=== PATIENT | male | born 1995 | race Caucasian/White ===

== ENCOUNTER 2018-03-04 20:29 | Emergency (ER) | payer BC ==
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
[2018-03-04] MEDS ORDERED: TETANUS & DIPHTHERIA TOX,ADULT 0.5 ML VIAL ONE (21:02)
[2018-03-04] MEDS ORDERED: FENTANYL CITR 100 MCG/2 ML ONE (21:02)
[2018-03-04] MEDS ORDERED: SILVER SULFADIAZINE 1% 25 GM TOP ONE (21:03)
== END 2018-03-04 21:20 | disposition home or self-care (01) ==
LOC: ER 20:29
DX: T21.12XA Burn of first degree of abdominal wall, initial encounter (principal); T23.172A Burn of first degree of left wrist, initial encounter; T23.171A Burn of first degree of right wrist, initial encounter; F17.210 Nicotine dependence, cigarettes, uncomplicated; X08.8XXA Exposure to other specified smoke, fire and flames, initial encounter; Y93.9 Activity, unspecified; Y92.9 Unspecified place or not applicable; Y99.9 Unspecified external cause status; Z23 Encounter for immunization
CPT/HCPCS: 90714; 96372; 99283; J3010

== ENCOUNTER 2018-05-16 00:51 | Emergency (ER) | payer BC ==
[2018-05-16] MEDS ORDERED: MAGNE/ALUM HYDROXD 30 ML UCUP ONE (01:23)
[2018-05-16] MEDS ORDERED: LIDOCAINE VISCOUS 2% SOLN 15 ML UDC ONE (01:23)
[2018-05-16 01:43] LABS: Absolute Lymphocytes (CBC) 3.7 K/uL (0.7-4.9); Absolute Monocytes 0.9 K/uL (0.1-1.3); Absolute Neutrophil 4.6 K/uL (1.8-8.0); Basophils % 0.5 % (0-1.3); Lymphocytes % 39.9 % (15.3-44.8); MCH 30.9 pg (27.0-35.0); MCV 87.9 fL (80-100); MPV 9.1 fL (7.6-11.3); Monocytes % 9.5 % (3.3-12.3); RBC Red Blood Cell Count 5.23 M/uL (4.33-5.43)
[2018-05-16 01:52] LABS: ALT/SGPT 28 U/L (12-78); AST/SGOT 21 U/L (15-37); Albumin 3.8 g/dL (3.4-5.0); Alkaline Phosphatase 49 U/L (45-117); BUN Blood Urea Nitrogen 16 mg/dL (7-18); Bicarbonate 27 mmol/L (21-32); Bilirubin Total 0.4 mg/dL (0.2-1.0); Glucose Level 112 mg/dL (74-106); Lipase 172 U/L (73-393); Potassium 4.5 mmol/L (3.5-5.1); Protein, Total 6.8 g/dL (6.4-8.2); Sodium Level 141 mmol/L (136-145)
[2018-05-16] MEDS ORDERED: DIPHENHYDRAMINE 25 MG TAB/CAP ONE (01:56)
--- NOTE | 2018-05-16 02:41 | EDPHYS ---
Physician Documentation [facility] Name: Antony Brown Age: 23 yrs Sex: Male : 1995 Arrival Date: 05/16/2018 Time: 00:54 Bed 15 Private MD: Kwesi Messer V ED Physician Raudel Christensen HPI: 05/16 02:41 This 23 yrs old Male presents to ER via Ambulatory with complaints of ps1 Abdominal Pain. 02:41 The patient presents with abdominal pain in the epigastric area, in the right upper ps1 quadrant. Onset: The symptoms/episode began/occurred months ago and related to food. Patient had a worse episode tonight. Patient does drink alcohol intermittently. Pain localized epigastric and RUQ. Pain rated as mild to moderate. No remitting, worse with food. . Historical: - Allergies: 01:08 No Known Allergies; lp1 - Home Meds: 01:08 None [Active]; lp1 - PMHx: 01:08 None; lp1 - PSHx: 01:08 wrist surgery; lp1 - Immunization history:: Adult Immunizations up to date. - Social history:: Smoking status: Patient uses tobacco products, smokes one-half pack cigarettes per day. - Ebola Screening: : No symptoms or risks identified at this time. ROS: 02:41 Constitutional: Negative for fever, chills, and weight loss, Eyes: Negative for injury, ps1 pain, redness, and discharge, Cardiovascular: Negative for chest pain, palpitations, and edema, Respiratory: Negative for shortness of breath, cough, wheezing, and pleuritic chest pain, Back: Negative for injury and pain, MS/Extremity: Negative for injury and deformity, Skin: Negative for injury, rash, and discoloration, Neuro: Negative for headache, weakness, numbness, tingling, and seizure. 02:41 Abdomen/GI: Positive for abdominal pain. Exam: 02:41 Constitutional: This is a well developed, well nourished patient who is awake, alert, ps1 and in no acute distress. Head/Face: Normocephalic, atraumatic. Eyes: Pupils equal round and reactive to light, extra-ocular motions intact. Lids and lashes normal. Conjunctiva and sclera are non-icteric and not injected. ENT: Nares patent. No nasal discharge, no septal abnormalities noted. Tympanic membranes are normal and external auditory canals are clear. Oropharynx with no redness, swelling, or masses, exudates, or evidence of obstruction, uvula midline. Mucous membranes moist. Chest/axilla: Normal chest wall appearance and motion. Nontender with no deformity. No lesions are appreciated. Cardiovascular: Regular rate and rhythm. No gallops, murmurs, or rubs. Normal PMI, no JVD. No pulse deficits. Respiratory: Lungs have equal breath sounds bilaterally, clear to auscultation and percussion. No rales, rhonchi or wheezes noted. No increased work of breathing, no retractions or nasal flaring. Skin: Warm, dry with normal turgor. Normal color with no rashes, no lesions, and no evidence of cellulitis. MS/ Extremity: Pulses equal, no cyanosis. Neurovascular intact. Full, normal range of motion. Neuro: Awake and alert, GCS 15, oriented to person, place, time, and situation. Cranial nerves II-XII grossly intact. Sensory grossly intact. Psych: Awake, alert, with orientation to person, place and time. Behavior, mood, and affect are within normal limits. 02:41 Abdomen/GI: Inspection: abdomen appears normal, Bowel sounds: normal, Palpation: mild abdominal tenderness, in the right upper quadrant and epigastric area. Vital Signs: 01:08 BP 117 / 90; Pulse 76; Resp 18; Temp 98.1(O); Pulse Ox 99% on R/A; Weight 95.25 kg; lp1 Height 6 ft. 2 in. (187.96 cm); Pain 9/10; 02:15 BP 104 / 70; Pulse 75; Resp 18; Pulse Ox 97% on R/A; aa1 01:08 Body Mass Index 26.96 (95.25 kg, 187.96 cm) lp1 MDM: 00:57 Patient medically screened. jr8 02:41 Data reviewed: vital signs, nurses notes, lab test result(s), radiologic studies, CT ps1 scan, and as a result, I will discharge patient. Counseling: I had a detailed discussion with the patient and/or guardian regarding: the historical points, exam findings, and any diagnostic results supporting the discharge/admit diagnosis, the need for outpatient follow up, a general surgeon. 05/16 01:13 Order name: CBC with Diff; Complete Time: 01:45 ps1 05/16 01:13 Order name: Lipase; Complete Time: 01:56 ps1 05/16 01:13 Order name: CMP; Complete Time: 01:56 ps1 05/16 01:13 Order name: CT Abd/Pelvis - W/Contrast ps1 05/16 01:13 Order name: IV Saline Lock; Complete Time: 01:41 ps1 05/16 01:13 Order name: Labs collected and sent; Complete Time: 01:41 ps1 Administered Medications: 01:20 Drug: GI Cocktail without - (Maalox Suspension 30 ml, Lidocaine Liquid 2 % 15 aa1 ml) Route: PO; 02:03 Follow up: Response: No adverse reaction; Pain is decreased aa1 02:08 Drug: Benadryl 25 mg Route: PO; aa1 02:51 Follow up: Response: No adverse reaction; Marked relief of symptoms aa1 Disposition: 05/16/18 02:40 Discharged to Home. Impression: Cholelithiasis. - Condition is Stable. - Discharge Instructions: Biliary Colic, Adult. - Medication Reconciliation Form, Thank You Letter, Antibiotic Education, Prescription Opioid Use form. - Follow up: Ruben Anna MD; When: Tomorrow; Reason: Further diagnostic work-up, Recheck today's complaints, Continuance of care. - Problem is new. - Symptoms have improved. Signatures: Dispatcher [employer] [facility] Grace Patrick RN RN aa1 Abigail Gaming RN RN lp1 Dalton Cardenas PA PA jr8 Raudel Christensen MD MD ps1 Corrections: (The following items were deleted from the chart) 01:42 01:13 Creatinine for Radiology+C.LAB.BRZ ordered. [facility] EDMS 02:54 02:40 05/16/2018 02:40 Discharged to Home. Impression: Cholelithiasis. Condition is aa1 Stable. Forms are Medication Reconciliation Form, Thank You Letter, Antibiotic Education, Prescription Opioid Use. Follow up: Ruben Anna; When: Tomorrow; Reason: Further diagnostic work-up, Recheck today's complaints, Continuance of care. Problem is new. Symptoms have improved. ps1
--- NOTE | 2018-05-16 02:41 | ER ---
Nurse's Notes [facility] Name: Antony Brown Age: 23 yrs Sex: Male : 1995 Arrival Date: 05/16/2018 Time: 00:54 Bed 15 Private MD: Kwesi Messer V Diagnosis: Cholelithiasis Presentation: 05/16 01:06 Presenting complaint: Patient states: Epigastric pain that began after dinner tonight; lp1 Patient states pain happens often, worse tonight; Vomited x1;. Transition of care: patient was not received from another setting of care. Onset of symptoms was May 15, 2018 at 17:30. Risk Assessment: Do you want to hurt yourself or someone else? Patient reports no desire to harm self or others. Initial Sepsis Screen: Does the patient meet any 2 criteria? No. Patient's initial sepsis screen is negative. Does the patient have a suspected source of infection? No. Patient's initial sepsis screen is negative. Care prior to arrival: None. 01:06 Method Of Arrival: Ambulatory lp1 01:06 Acuity: NIGHAT 3 lp1 Historical: - Allergies: 01:08 No Known Allergies; lp1 - Home Meds: 01:08 None [Active]; lp1 - PMHx: 01:08 None; lp1 - PSHx: 01:08 wrist surgery; lp1 - Immunization history:: Adult Immunizations up to date. - Social history:: Smoking status: Patient uses tobacco products, smokes one-half pack cigarettes per day. - Ebola Screening: : No symptoms or risks identified at this time. Screenin:10 Abuse screen: Denies threats or abuse. Denies injuries from another. Nutritional aa1 screening: No deficits noted. Tuberculosis screening: No symptoms or risk factors identified. Fall Risk None identified. Assessment: 01:10 General: Appears in no apparent distress. comfortable, Behavior is calm, cooperative, aa1 appropriate for age. Pain: Complains of pain in epigastric area and right upper quadrant. Neuro: Level of Consciousness is awake, alert, obeys commands, Oriented to person, place, time, situation, Moves all extremities. Full function Gait is steady. Respiratory: Airway is patent Respiratory effort is even, unlabored, Respiratory pattern is regular, symmetrical. GI: Abdomen is non-distended, Bowel sounds present X 4 quads. Abd is soft X 4 quads Abdomen is tender to palpation in right upper quadrant Reports upper abdominal pain, epigastric pain, Patient currently denies diarrhea, vomiting. : No signs and/or symptoms were reported regarding the genitourinary system. EENT: No signs and/or symptoms were reported regarding the EENT system. Derm: Skin is intact, is healthy with good turgor, Skin is pink, warm \T\ dry. Musculoskeletal: Circulation, motion, and sensation intact. Capillary refill < 3 seconds. 02:00 Reassessment: Patient appears in no apparent distress at this time. Patient and/or aa1 family updated on plan of care and expected duration. Pain level reassessed. Patient is alert, oriented x 3, equal unlabored respirations, skin warm/dry/pink. Pt back from CT. C/O itching; MD notified. 02:53 Reassessment: Patient appears in no apparent distress at this time. Patient is alert, aa1 oriented x 3, equal unlabored respirations, skin warm/dry/pink. Discussed d/c \T\ f/u instructions with pt \T\ significant other; denies questions or concerns at this time Patient states feeling better. Vital Signs: 01:08 BP 117 / 90; Pulse 76; Resp 18; Temp 98.1(O); Pulse Ox 99% on R/A; Weight 95.25 kg; lp1 Height 6 ft. 2 in. (187.96 cm); Pain 9/10; 02:15 BP 104 / 70; Pulse 75; Resp 18; Pulse Ox 97% on R/A; aa1 01:08 Body Mass Index 26.96 (95.25 kg, 187.96 cm) lp1 ED Course: 00:54 Patient arrived in ED. es 00:55 Kwesi Messer MD is Private Physician. es 00:57 [facility] jr8 00:57 Raudel Christensen MD is Attending Physician. jr8 01:07 Triage completed. lp1 01:08 Arm band placed on. lp1 01:09 Grace Patrick, JULIAN is Primary Nurse. aa1 01:10 Patient has correct armband on for positive identification. Bed in low position. Call aa1 light in reach. Pulse ox on. NIBP on. 01:25 Inserted saline lock: 20 gauge in right antecubital area, using aseptic technique. aa1 Blood collected. 01:44 CT Abd/Pelvis - W/Contrast In Process Unspecified. EDMS 02:40 Ruben Anna MD is Referral Physician. ps1 02:53 No provider procedures requiring assistance completed. IV discontinued, intact, aa1 bleeding controlled, No redness/swelling at site. Pressure dressing applied. Administered Medications: 01:20 Drug: GI Cocktail without - (Maalox Suspension 30 ml, Lidocaine Liquid 2 % 15 aa1 ml) Route: PO; 02:03 Follow up: Response: No adverse reaction; Pain is decreased aa1 02:08 Drug: Benadryl 25 mg Route: PO; aa1 02:51 Follow up: Response: No adverse reaction; Marked relief of symptoms aa1 Outcome: 02:40 Discharge ordered by . ps1 02:54 Discharged to home ambulatory, with significant other. aa1 02:54 Condition: good 02:54 Discharge instructions given to patient, significant other, Instructed on discharge instructions, follow up and referral plans. Demonstrated understanding of instructions, follow-up care. 02:54 Patient left the ED. aa1 Signatures: Dispatcher [employer] EDMS Grace Patrick RN RN aa1 Linda Bailey Laura, RN RN lp1 Dalton Cardenas PA PA jr8 Raudel Christensen MD MD ps1
--- NOTE | 2018-05-16 08:40 | RAD REPORT ---
EXAM DESCRIPTION: CTAbdomen Pelvis W Contrast - 05/16/2018 3:51 am CLINICAL HISTORY: Abdominal pain. epigastric/ RUQ pain COMPARISON: CT ABD PELVIS W CONTRAST dated 08/06/2015 TECHNIQUE: Biphasic CT imaging of the abdomen and pelvis was performed with 100 ml non-ionic IV cont rast. All CT scans are performed using dose optimization technique as appropriate and may include automated exposure control or mA/KV adjustment according to patient size. FINDINGS: The lung bases are clear. The liver, spleen, pancreas, adrenal glands and kidneys are within normal limits. Cholelithiasis. No bowel obstruction, free air, free fluid or abscess. Small fat containing umbilical hernia. The tawana endix is normal. No evidence of significant lymphadenopathy. No suspicious bony findings. Small fat containing right inguinal hernia. IMPRESSION: Prominent cholelithiasis.
== END 2018-05-16 02:54 | disposition home or self-care (01) ==
LOC: ER 00:51
DX: K80.20 Calculus of gallbladder without cholecystitis without obstruction (principal); F17.210 Nicotine dependence, cigarettes, uncomplicated
CPT/HCPCS: 36415; 74177; 80053; 83690; 85025; 99284; Q9967

== ENCOUNTER 2018-05-25 12:30 | Day surgery (SDC) | payer BC ==
[2018-05-25] MEDS ORDERED: CEFOXITIN/SWI 1gm 1 GM/10 ML SYR ONE (13:06)
[2018-05-25] MEDS ORDERED: Ringers Lactate 1,000 ML IV ONE ×2 (13:25→14:41)
[2018-05-25] MEDS ORDERED: FENTANYL CITR 100 MCG/2 ML ONE ×4 (13:40→14:47)
[2018-05-25] MEDS ORDERED: ROCURONIUM 50 MG/5 ML VIAL IV ONE (13:40)
[2018-05-25] MEDS ORDERED: LIDOCAINE 1% MPF 5 ML VIAL ONE (13:40)
[2018-05-25] MEDS ORDERED: PROPOFOL 200 MG/20 ML VIAL IV ONE (13:40)
[2018-05-25] MEDS ORDERED: MIDAZOLAM HCL 2 MG/2 ML INJ ONE (13:40)
--- NOTE | 2018-05-25 13:57 | P.HP ---
Date of Service: 05/25/18 PC: This 23-year-old male presents for elective laparoscopic cholecystectomy with cholangiogram. HPC: Patient has been experiencing right upper quadrant abdominal pain, for off and on for the last few months. Has documented gallstones. PMH: Negative PSHx: Negative SOC: No known allergies SYS REVIEW: No cough, wheeze, shortness of breath. No chest pain or palpitations. Denies any urinary complaints. Has a strong family history of gallstones. O/E awake alert vital signs are stable HEENT: Not jaundiced Chest: Chest movement equal bilaterally ABD: Mild right upper quadrant tenderness LOCO: Intact DATA: Within normal limits, has documented gallstones IMPRESSION: Cholecystitis with biliary colic PLAN: I will take him to the operating room for laparoscopic possible open cholecystectomy with cholangiogram. The risks of this procedure have been discussed. The possibility of bleeding, infection, injury to bile ducts blood vessels and intestines has been described. The possible need for an open and/ or further surgeries and procedures has been discussed. He understands and wants us to proceed.
[2018-05-25] MEDS ORDERED: GLYCOPYRROLATE 0.2 MG/ML SYR ONE (14:23)
[2018-05-25] MEDS ORDERED: NEOSTIGMINE 1 MG/ML -5 ML SYRINGE ONE ×2 (14:25→14:52)
--- NOTE | 2018-05-25 15:03 | P.OP ---
Preoperative diagnosis: Cholelithiasis, biliary colic Postoperative diagnosis: The same Primary procedure: Laparoscopic cholecystectomy Secondary procedure: Cholangiogram Anesthesia: General Estimated blood loss: Less than 10 cc Specimen: 1 gallbladder and contents Operative Technique: The patient was brought to the operating room placed supine on the table. After the induction of adequate general endotracheal anesthesia, the area of the abdomen is prepped with a DuraPrep solution, and draped in the usual aseptic manner. A subumbilical incision was made. This brought down through the skin and subcutaneous tissue. The Visiport was used to enter the peritoneal cavity and created pneumoperitoneum to approximately 12 mm of mercury. Under direct vision a 5 mm trocar was placed in the upper midline, and 2 other 5 mm trocars on the right lateral side. The patient's head was then elevated and rolled towards the coating operator's side. We could see a distended and chronically inflamed gallbladder. A grasper was placed on the fundus of the gallbladder. Another 1 was placed down by Magali's pouch. Applying lateral traction we were able to dissect and expose the cystic duct and artery. The artery was dealt with 1st. It was clipped and divided in the usual manner. A clip was then placed between the gallbladder and the cystic duct. An opening was made into the cystic duct. We attempted then to pass the cholangiocath into the cystic duct. We could see the duct was then, and there were bowels in the cystic duct itself. Holding the catheter in place, we were able to obtained a normal intraoperative cholangiogram. We could see there was good flow contrast into the duodenum with no filling defects. We also demonstrated the left and right hepatic duct as well as the cystic duct itself. Clips were now placed on the distal portion of the cystic duct. The cystic duct was then divided. The gallbladder was now dissected free from the liver bed, placed into an Endo-Catch, and brought out through the umbilical trocar site. The gallbladder fossa was inspected to ensure adequate hemostasis. It was irrigated with a saline solution and the irrigant aspirated from the peritoneal cavity. 0.25% Marcaine was aerosolized into the right upper quadrant and the gallbladder fossa. The umbilical trocar site was now approximated with an Endo Close and an absorbable sutures. The pneumoperitoneum was then collapsed, the suture tied, and burak applied to the skin. A further 0.25% Marcaine was injected around are incision sites. At the end of the procedure the patient was in a stable condition when sent to the recovery room. Needle sponge instrument count were correct. 1 specimen was sent for histopathology. Complications: None Transferred to: Recovery Room Condition: Good
[2018-05-25] MEDS: MEPERIDINE HCL 50 MG/ML AMP ONE ×2 (15:11→15:17)
[2018-05-25] MEDS: HYDROMORPHONE HCL 1 MG/ML INJ ONE ×5 (15:25→15:45)
[2018-05-25] MEDS ORDERED: HYDROCODONE/APAP 7.5/325 MG TAB PO PRN ×2 (15:30→16:49)
[2018-05-25] MEDS ORDERED: MORPHINE 4 MG/ML SYR IV PRN (15:30)
[2018-05-25] MEDS ORDERED: ONDANSETRON 4 MG/2 ML VIAL IV PRN ×2 (15:30→16:50)
[2018-05-25] MEDS ORDERED: Ringers Lactate 1,000 ML IV SCH ×2 (16:00→17:00)
--- NOTE | 2018-05-25 16:05 | RAD REPORT ---
EXAM DESCRIPTION: RADCholangiogram Oper-Xray Or05/25/2018 3:46 pm CLINICAL HISTORY: Abdominal pain FINDINGS: The examination was performed by Dr. Anna. The cystic duct was cannulated and contrast administered. Contrast flowed into the duodenum. The biliary tree is normal caliber without a filling defect seen. Fluoroscopy time 2 seconds. Two fluoroscopic spot images obtained
[2018-05-25] MEDS: MORPHINE 4 MG/ML SYR IV PRN ×2 (16:57→19:32)
[2018-05-25] MEDS ORDERED: INFLUENZA VACCINE (for 3y+) 0.5 ML DOSE IMVAC ONE (19:00)
== END 2018-05-26 | disposition left against medical advice (07) ==
LOC: OR 12:30 → UNDOADMIN 15:32 → 2ND 15:32 → OR 05-26
PROVIDERS: ATTEND Surgery
PROC: BF00YZZ Plain Radiography of Bile Ducts using Other Contrast (ICD-10-PCS; 2018-05-25)
PROC: 0FT44ZZ Resection of Gallbladder, Percutaneous Endoscopic Approach (ICD-10-PCS; principal; 2018-05-25 13:45)
DX: K80.64 Calculus of gallbladder and bile duct with chronic cholecystitis without obstruction (principal)
CPT/HCPCS: 74300; 88304; G0008; J1170; J2175; J2250; J2405; J2704; J2710; J3010; Q2035; Q9967

== ENCOUNTER 2018-07-10 13:09 | Emergency (ER) | payer BC ==
[2018-07-10] MEDS ORDERED: KETOROLAC 30 MG/ML INJ ONE (14:26)
[2018-07-10] MEDS ORDERED: DIPHENHYDRAMINE 50 MG/ML VIAL ONE (14:26)
[2018-07-10] MEDS ORDERED: DEXAMETHASONE 10 MG/ML VIAL ONE (14:26)
--- NOTE | 2018-07-10 14:51 | ER ---
Nurse's Notes [facility] Name: Butch Brown Age: 23 yrs Sex: Male : 1995 Arrival Date: 07/10/2018 Time: 13:14 Bed 8 Private MD: Diagnosis: Torticollis;Muscle spasm Presentation: 07/10 13:24 Presenting complaint: Patient states: "I woke up with a crick in my neck this morning, ss but about an hour ago it turned into an agonizing pain.". Transition of care: patient was not received from another setting of care. Onset of symptoms was July 10, 2018. Risk Assessment: Do you want to hurt yourself or someone else? Patient reports no desire to harm self or others. Initial Sepsis Screen: Does the patient meet any 2 criteria? No. Patient's initial sepsis screen is negative. Does the patient have a suspected source of infection? No. Patient's initial sepsis screen is negative. Care prior to arrival: None. 13:24 Method Of Arrival: Ambulatory ss 13:24 Acuity: NIGHAT 3 ss Historical: - Allergies: 13:26 No Known Allergies; ss - Home Meds: 13:26 None [Active]; ss - PMHx: 13:26 None; ss - PSHx: 13:26 R arm; Cholecystectomy; ss - Immunization history:: Adult Immunizations up to date. - Social history:: Smoking status: Patient uses tobacco products, smokes one-half pack cigarettes per day. - Ebola Screening: : Patient denies exposure to infectious person Patient denies travel to an Ebola-affected area in the 21 days before illness onset. - Family history:: not pertinent. - Hospitalizations: : No recent hospitalization is reported. Screenin:30 Abuse screen: Denies threats or abuse. Denies injuries from another. Nutritional sv screening: No deficits noted. Tuberculosis screening: No symptoms or risk factors identified. Fall Risk None identified. Assessment: 14:30 General: Appears in no apparent distress. uncomfortable, well developed, Behavior is sv calm, cooperative, appropriate for age. Pain: Complains of pain in right posterior aspect of neck, right lateral aspect of neck and right anterior aspect of neck Pain currently is 8 out of 10 on a pain scale. Pain began this morning Is continuous, Aggravated by increased activity, Noted to be grimacing, resistant to movement. Neuro: Level of Consciousness is awake, alert, obeys commands, Oriented to person, place, time, situation, Moves all extremities. Full function. Respiratory: Respiratory effort is even, unlabored, Respiratory pattern is regular, symmetrical. Derm: Skin is pink, warm \\T\\ dry. 14:58 Reassessment: Patient appears in no apparent distress at this time. Patient and/or sv family updated on plan of care and expected duration. Pain level reassessed. Patient is alert, oriented x 3, equal unlabored respirations, skin warm/dry/pink. Reports he feels more relaxed but stated "I didn't come here to get relaxed, I came here for pain.". Vital Signs: 13:26 BP 124 / 96; Pulse 73; Resp 16; Temp 98.5(O); Pulse Ox 98% on R/A; Weight 112.94 kg; ss Height 6 ft. 2 in. (187.96 cm); Pain 8/10; 13:26 Body Mass Index 31.97 (112.94 kg, 187.96 cm) ED Course: 13:14 Patient arrived in ED. dl4 13:25 Triage completed. ss 13:26 Arm band placed on left wrist. ss 13:42 Brittany Ray, RN is Primary Nurse. sv 13:51 Vincenzo Iyer MD is Attending Physician. rn 14:12 Inserted saline lock: 22 gauge in right antecubital area, using aseptic technique. jb1 14:30 Patient has correct armband on for positive identification. Bed in low position. Adult sv w/ patient. Door closed. Warm blanket given. Head of bed elevated. 15:12 No provider procedures requiring assistance completed. IV discontinued, intact, sv bleeding controlled, No redness/swelling at site. Pressure dressing applied. Administered Medications: 14:20 Drug: TORadol 30 mg Route: IVP; Site: right antecubital; sv 15:11 Follow up: Response: No adverse reaction sv 14:22 Drug: Benadryl 25 mg Route: IVP; Site: right antecubital; sv 15:11 Follow up: Response: No adverse reaction sv 14:26 Drug: Decadron - Dexamethasone 10 mg Route: IVP; Site: right antecubital; sv 15:11 Follow up: Response: No adverse reaction sv 15:00 Drug: Demerol 25 mg Route: IVP; Site: right antecubital; sv 15:11 Follow up: Response: No adverse reaction sv Outcome: 14:50 Discharge ordered by . rn 15:13 Discharged to home ambulatory, with family. sv 15:13 Condition: stable 15:13 Discharge instructions given to patient, family, Instructed on discharge instructions, follow up and referral plans. medication usage, neck ROM Demonstrated understanding of instructions, follow-up care, medications, Prescriptions given X 3. 15:13 Patient left the ED. sv Signatures: Charles Doan jb1 Brittany Ray, RN RN Vincenzo Bianchi MD MD rn Smirch, Shelby, RN RN ss Luna, David dl4
--- NOTE | 2018-07-10 14:51 | EDPHYS ---
Physician Documentation [facility] Name: Butch Brown Age: 23 yrs Sex: Male : 1995 Arrival Date: 07/10/2018 Time: 13:14 Bed 8 Private MD: ED Physician Vincenzo Iyer HPI: 07/10 14:14 This 23 yrs old Male presents to ER via Ambulatory with complaints of Stiff rn Neck. 14:14 The patient or guardian complains of pain. The symptoms are located on the right neck. rn Onset: The symptoms/episode began/occurred today. Associated signs and symptoms: Pertinent positives: This patient does not have any pertinent positive signs or symptoms associated with neck pain. Pertinent negatives: fever, bladder incontinence, bowel incontinence, numbness, tingling, vomiting, weakness. The pain does not radiate. Modifying factors: The symptoms are alleviated by nothing. the symptoms are aggravated by movement, pressure. Severity of symptoms: At their worst the symptoms were moderate, in the emergency department the symptoms are unchanged. The patient has not experienced similar symptoms in the past. Reports right side of neck hurts, was sleeping wrong, woke up with right sided neck pain, starts behind ear and hurts down to right shoulder, no fever, reports "crud in house", no trauma, felt like got over his illness yesterday or day before, worse with turning side to side, does not hurt moving up or down, no sore throat, no swelling.. Historical: - Allergies: 13:26 No Known Allergies; ss - Home Meds: 13:26 None [Active]; ss - PMHx: 13:26 None; ss - PSHx: 13:26 R arm; Cholecystectomy; ss - Immunization history:: Adult Immunizations up to date. - Social history:: Smoking status: Patient uses tobacco products, smokes one-half pack cigarettes per day. - Ebola Screening: : Patient denies exposure to infectious person Patient denies travel to an Ebola-affected area in the 21 days before illness onset. - Family history:: not pertinent. - Hospitalizations: : No recent hospitalization is reported. ROS: 14:14 Constitutional: Negative for fever, chills, and weight loss, Eyes: Negative for injury, rn pain, redness, and discharge, Neck: Negative for injury, and swelling, Cardiovascular: Negative for chest pain, palpitations, and edema, Respiratory: Negative for shortness of breath, cough, wheezing, and pleuritic chest pain, Abdomen/GI: Negative for abdominal pain, nausea, vomiting, diarrhea, and constipation, MS/Extremity: Negative for injury and deformity, Skin: Negative for injury, rash, and discoloration, Neuro: Negative for headache, weakness, numbness, tingling, and seizure. Exam: 14:14 Constitutional: This is a well developed, well nourished patient who is awake, alert, rn appears in pain, resting head on pink pillow to left Head/Face: Normocephalic, atraumatic. Eyes: Pupils equal round and reactive to light, extra-ocular motions intact. Lids and lashes normal. Conjunctiva and sclera are non-icteric and not injected. Cornea within normal limits. Periorbital areas with no swelling, redness, or edema. ENT: MMM, no swelling, no LAD, no crepitus Neck: Trachea midline, no thyromegaly or masses palpated, and no cervical lymphadenopathy. NO meningismus, no posterior pain or tenderness, + tenderness right SCM without fluctuance or mass Skin: Warm, dry with normal turgor. Normal color with no rashes, no lesions, and no evidence of cellulitis. MS/ Extremity: Pulses equal, no cyanosis. Neurovascular intact. Full, normal range of motion. Equal circumference. Neuro: Awake and alert, GCS 15, oriented to person, place, time, and situation. Cranial nerves II-XII grossly intact. Motor strength 5/5 in all extremities. Sensory grossly intact. Vital Signs: 13:26 BP 124 / 96; Pulse 73; Resp 16; Temp 98.5(O); Pulse Ox 98% on R/A; Weight 112.94 kg; ss Height 6 ft. 2 in. (187.96 cm); Pain 8/10; 13:26 Body Mass Index 31.97 (112.94 kg, 187.96 cm) ss MDM: 13:51 Patient medically screened. rn 14:50 Differential diagnosis: cervical strain, torticollis. Data reviewed: vital signs, rn nurses notes, and as a result, I will discharge patient. Counseling: I had a detailed discussion with the patient and/or guardian regarding: the historical points, exam findings, and any diagnostic results supporting the discharge/admit diagnosis, the need for outpatient follow up, to return to the emergency department if symptoms worsen or persist or if there are any questions or concerns that arise at home. Response to treatment: the patient's symptoms have mildly improved after treatment, and as a result, I will discharge patient. Special discussion: I discussed with the patient/guardian in detail that at this point there is no indication for admission to the hospital. It is understood, however, that if the symptoms persist or worsen the patient needs to return immediately for re-evaluation. 07/10 14:01 Order name: IV Start; Complete Time: 14:12 rn Administered Medications: 14:20 Drug: TORadol 30 mg Route: IVP; Site: right antecubital; sv 15:11 Follow up: Response: No adverse reaction sv 14:22 Drug: Benadryl 25 mg Route: IVP; Site: right antecubital; sv 15:11 Follow up: Response: No adverse reaction sv 14:26 Drug: Decadron - Dexamethasone 10 mg Route: IVP; Site: right antecubital; sv 15:11 Follow up: Response: No adverse reaction sv 15:00 Drug: Demerol 25 mg Route: IVP; Site: right antecubital; sv 15:11 Follow up: Response: No adverse reaction sv Disposition: 07/10/18 14:50 Discharged to Home. Impression: Torticollis, Muscle spasm. - Condition is Stable. - Discharge Instructions: Acute Torticollis, Adult, Neck Exercises. - Prescriptions for Ibuprofen 800 mg Oral Tablet - take 1 tablet by ORAL route every 12 hours As needed take with food; 20 tablet. Cyclobenzaprine 10 mg Oral Tablet - take 1 tablet by ORAL route every 8 hours As needed; 20 tablet. Medrol (Romulo) 4 mg Oral Tablets, Dose Pack - take 1 tablet by ORAL route as directed - follow package instructions; 1 packet. - Medication Reconciliation Form, Thank You Letter, Antibiotic Education, Prescription Opioid Use form. - Follow up: Private Physician; When: As needed; Reason: Recheck today's complaints, Re-evaluation by your physician. - Problem is new. - Symptoms have improved. Signatures: Brittany Ray RN RN Vincenzo Iyer MD MD rn Smirch, Shelby, RN RN Corrections: (The following items were deleted from the chart) 15:13 14:50 07/10/2018 14:50 Discharged to Home. Impression: Torticollis; Muscle spasm. sv Condition is Stable. Forms are Medication Reconciliation Form, Thank You Letter, Antibiotic Education, Prescription Opioid Use. Follow up: Private Physician; When: As needed; Reason: Recheck today's complaints, Re-evaluation by your physician. Problem is new. Symptoms have improved. rn
[2018-07-10] MEDS ORDERED: MEPERIDINE HCL 25 MG/0.5 ML ONE (15:12)
== END 2018-07-10 15:13 | disposition home or self-care (01) ==
LOC: ER 13:09
DX: M62.838 Other muscle spasm (principal); F17.210 Nicotine dependence, cigarettes, uncomplicated
CPT/HCPCS: 96374; 96375; 99283; J1100; J2175

== ENCOUNTER 2020-05-04 15:06 | Emergency (ER) | payer BC, SELFPAY ==
[2020-05-04 16:27] LABS: Absolute Lymphocytes (CBC) 2.5 K/uL (0.7-4.9); Basophils % 0.4 % (0-1.3); Hematocrit 49.5 % (39.6-49.0); MPV 9.3 fL (7.6-11.3); RBC Red Blood Cell Count 5.67 M/uL (4.33-5.43)
[2020-05-04 16:31] LABS: Protime INR 0.97
[2020-05-04] MEDS ORDERED: NA CHLORIDE 0.9% 1,000 ML ONE (16:35)
[2020-05-04 16:47] LABS: Albumin 4.4 g/dL (3.4-5.0); Bilirubin Direct 0.1 mg/dL (0-0.2); Bilirubin Total 0.6 mg/dL (0.2-1.0); Potassium 4.2 mmol/L (3.5-5.1); Protein, Total 7.9 g/dL (6.4-8.2)
--- NOTE | 2020-05-04 18:50 | RAD REPORT ---
EXAM DESCRIPTION: CTAbdomen Pelvis W Contrast - 05/04/2020 6:02 pm CLINICAL HISTORY: Abdominal pain. rectal bleeding COMPARISON: <Comparisons> TECHNIQUE: Biphasic CT imaging of the abdomen and pelvis was performed with 100 ml non-ionic IV cont rast. All CT scans are performed using dose optimization technique as appropriate and may include automated exposure control or mA/KV adjustment according to patient size. FINDINGS: The lung bases are clear.Cholecystectomy. The liver, spleen, pancreas, adrenal glands and kidneys are within normal limits. No bowel obstruction, free air, free fluid or abscess. The appendix is normal. No evidence of signi ficant lymphadenopathy. Small fat containing right inguinal hernia. Colon is incompletely assessed du e to being decompressed. No suspicious bony findings. IMPRESSION: No acute intra-abdominal or pelvic finding.
--- NOTE | 2020-05-04 19:19 | ER ---
Nurse's Notes [facility] Name: Butch Brown Age: 24 yrs Sex: Male : 1995 Arrival Date: 05/04/2020 Time: 15:08 Bed 7 Private MD: Diagnosis: Other fecal abnormalities-blood in stool Presentation: 05/04 15:21 Chief complaint: Patient states: Bright red rectal bleeding with BM's for 4 months, ll1 getting slowly worse. No fever. No N/V/D. Coronavirus screen: Client denies travel out of the [place] in the last 14 days. At this time, the client does not indicate any symptoms associated with coronavirus-19. Ebola Screen: Patient denies travel to an Ebola-affected area in the 21 days before illness onset. Initial Sepsis Screen: Does the patient meet any 2 criteria? HR > 90 bpm. Risk Assessment: Do you want to hurt yourself or someone else? Patient reports no desire to harm self or others. Onset of symptoms was December 30, 2019. 15:21 Method Of Arrival: Ambulatory [facility] 15:21 Acuity: NIGHAT 3 ll1 16:03 Initial Sepsis Screen: Does the patient have a suspected source of infection? No. ph Patient's initial sepsis screen is negative. Historical: - Allergies: 15:23 No Known Allergies; ll1 - PSHx: 15:23 Cholecystectomy; R arm; ll1 - Immunization history:: Flu vaccine is not up to date. - Social history:: Smoking status: Patient reports the use of cigarette tobacco products, smokes one pack cigarettes per day. Screenin:02 Abuse screen: Denies threats or abuse. Denies injuries from another. Nutritional ph screening: No deficits noted. Tuberculosis screening: No symptoms or risk factors identified. Fall Risk None identified. Assessment: 16:29 General: Appears in no apparent distress. comfortable, well groomed, Behavior is calm, ph cooperative, appropriate for age, Denies fever, feeling ill. Pain: Denies pain. Neuro: Level of Consciousness is awake, alert, obeys commands, Oriented to person, place, time, situation. Cardiovascular: Capillary refill < 3 seconds Patient's skin is warm and dry. Respiratory: Airway is patent Respiratory effort is even, unlabored, Respiratory pattern is regular, symmetrical. GI: Reports constipation, bloody stool, Patient currently denies diarrhea, nausea, vomiting. Derm: Skin is intact, is healthy with good turgor, Skin is pink, warm \T\ dry. 18:30 Reassessment: Patient appears in no apparent distress at this time. Patient and/or ph family updated on plan of care and expected duration. Pain level reassessed. Patient is alert, oriented x 3, equal unlabored respirations, skin warm/dry/pink. 19:10 Reassessment: Patient appears in no apparent distress at this time. Patient and/or wh family updated on plan of care and expected duration. Pain level reassessed. Patient is alert, oriented x 3, equal unlabored respirations, skin warm/dry/pink. Vital Signs: 15:21 BP 129 / 93; Pulse 100; Resp 18; Temp 98.7; Pulse Ox 95% ; Weight 99.79 kg; Height 6 ll1 ft. 2 in. (187.96 cm); Pain 0/10; 16:30 BP 112 / 82; Pulse 91; Resp 18; Pulse Ox 95% on R/A; ph 17:30 BP 118 / 78; Pulse 87; Resp 18; Pulse Ox 99% on R/A; ph 18:30 BP 116 / 80; Pulse 86; Resp 16; Pulse Ox 98% on R/A; ph 19:30 BP 121 / 76; Pulse 82; Resp 18; Pulse Ox 99% on R/A; wh 15:21 Body Mass Index 28.25 (99.79 kg, 187.96 cm) ll1 ED Course: 15:08 Patient arrived in ED. ds1 15:23 Triage completed. ll1 15:24 Arm band placed on. ll1 15:52 Jose Castellanos PA is PHCP. cp 15:52 Vincenzo Iyer MD is Attending Physician. cp 16:00 Melanie Humphries, JULIAN is Primary Nurse. ph 16:02 Patient has correct armband on for positive identification. Bed in low position. Call light in reach. Side rails up X 1. Pulse ox on. NIBP on. Door closed. Noise minimized. Warm blanket given. 16:29 Initial lab(s) drawn, by me, sent to lab. Inserted saline lock: 22 gauge in right ph antecubital area, using aseptic technique. Blood collected. 18:01 CT Abd/Pelvis - IV Contrast Only In Process Unspecified. EDMS 19:03 No provider procedures requiring assistance completed. ph 19:14 Beto Flores MD is Referral Physician. 19:30 IV discontinued, intact, bleeding controlled, No redness/swelling at site. Administered Medications: 16:28 Drug: NS 0.9% 1000 ml Route: IV; Rate: 1 bolus; Site: right antecubital; ph 19:30 Follow up: Response: No adverse reaction; IV Status: Completed infusion Outcome: 19:18 Discharge ordered by MD. cp 19:30 Discharged to home ambulatory. 19:30 Condition: stable 19:30 Discharge instructions given to patient, Instructed on discharge instructions, follow up and referral plans. POC Demonstrated understanding of instructions, follow-up care, POC 19:31 Patient left the ED. Signatures: Dispatcher [employer] [facility] Allie Patel ds1 Melanie Humphries, RN RN Jose Gimenez, SHADIA RENO Juan Pablo Toledo Janell Estrada RN RN ll1
--- NOTE | 2020-05-04 19:19 | EDPHYS ---
Physician Documentation [facility] Name: Butch Brown Age: 24 yrs Sex: Male : 1995 Arrival Date: 05/04/2020 Time: 15:08 Bed 7 Private MD: ED Physician Vincenzo Iyer HPI: 05/04 16:05 This 24 yrs old Male presents to ER via Ambulatory with complaints of Blood cp In Stool. 16:05 The patient presents to the emergency department with rectal bleeding, bright red blood cp with bowel movement, with multiple such episodes. 16:05 Onset: The symptoms/episode began/occurred 4 month(s) ago. cp 16:05 Abdominal pain: none is appreciated. Associated signs and symptoms: Pertinent cp positives: weight loss, Pertinent negatives: anorexia, constipation, diarrhea, fever. Severity of symptoms: in the emergency department the symptoms are unchanged despite home interventions. Historical: - Allergies: 15:23 No Known Allergies; ll1 - PSHx: 15:23 Cholecystectomy; R arm; ll1 - Immunization history:: Flu vaccine is not up to date. - Social history:: Smoking status: Patient reports the use of cigarette tobacco products, smokes one pack cigarettes per day. ROS: 16:05 Abdomen/GI: Positive for rectal bleeding, Negative for abdominal pain, vomiting, cp diarrhea, constipation, anorexia, black/tarry stool. 16:05 Eyes: Negative for injury, pain, redness, and discharge. cp 16:05 Constitutional: Positive for weight loss, Negative for body aches, chills, fever. 16:05 Cardiovascular: Negative for chest pain. 16:05 Respiratory: Negative for cough, shortness of breath, wheezing. 16:05 : Negative for urinary symptoms. 16:05 Neuro: Negative for altered mental status, headache, syncope, weakness. 16:05 All other systems are negative. Exam: 16:10 Constitutional: The patient appears in no acute distress, alert, awake, comfortable, cp non-toxic, well developed, well nourished. 16:10 Head/Face: Normocephalic, atraumatic. cp 16:10 Eyes: Periorbital structures: appear normal, Conjunctiva: normal, no exudate, no injection, Sclera: no appreciated abnormality, Lids and lashes: appear normal, bilaterally. 16:10 ENT: External ear(s): are unremarkable, Nose: is normal, Mouth: Lips: moist, Oral mucosa: moist, Posterior pharynx: Airway: no evidence of obstruction, patent. 16:10 Chest/axilla: Inspection: normal. 16:10 Cardiovascular: Rate: tachycardic, Rhythm: regular. 16:10 Respiratory: the patient does not display signs of respiratory distress, Respirations: normal, no use of accessory muscles, labored breathing, is not present, Breath sounds: are clear throughout, no decreased breath sounds. 16:10 Abdomen/GI: Inspection: abdomen appears normal, Bowel sounds: active, all quadrants, Palpation: abdomen is soft and non-tender, in all quadrants, rebound tenderness, is not appreciated, voluntary guarding, is not appreciated, involuntary guarding, is not appreciated. 16:10 : Rectal exam: Rectal tone: normal, Stool: brown, Guaiac testing: results were negative for occult blood. Vital Signs: 15:21 BP 129 / 93; Pulse 100; Resp 18; Temp 98.7; Pulse Ox 95% ; Weight 99.79 kg; Height 6 ll1 ft. 2 in. (187.96 cm); Pain 0/10; 16:30 BP 112 / 82; Pulse 91; Resp 18; Pulse Ox 95% on R/A; ph 17:30 BP 118 / 78; Pulse 87; Resp 18; Pulse Ox 99% on R/A; ph 18:30 BP 116 / 80; Pulse 86; Resp 16; Pulse Ox 98% on R/A; ph 19:30 BP 121 / 76; Pulse 82; Resp 18; Pulse Ox 99% on R/A; wh 15:21 Body Mass Index 28.25 (99.79 kg, 187.96 cm) ll1 MDM: 16:01 Patient medically screened. cp 16:35 Differential diagnosis: diverticulitis, hemorrhoids, colitis, colon carcinoma. cp 19:10 Data reviewed: vital signs, nurses notes, lab test result(s), radiologic studies, CT cp scan. 19:10 Counseling: I had a detailed discussion with the patient and/or guardian regarding: the cp historical points, exam findings, and any diagnostic results supporting the discharge/admit diagnosis, lab results, radiology results, the need for outpatient follow up, for definitive care, a ui software engineer. 05/04 16:01 Order name: Basic Metabolic Panel; Complete Time: 16:49 cp 05/04 16:49 Interpretation: Normal except: CL 110; GFR 75. cp 05/04 16:01 Order name: CBC with Diff; Complete Time: 16:49 cp 05/04 18:23 Interpretation: Normal except: WBC 12.3; RBC 5.67; HCT 49.5; NEUT A 9.1. cp 05/04 16:01 Order name: Hepatic Function; Complete Time: 16:49 cp 05/04 18:23 Interpretation: Reviewed. cp 05/04 16: Order name: Lipase; Complete Time: 16:49 cp 05/04 16: Order name: PT-INR; Complete Time: 16:49 cp 05/04 16: Order name: Ptt, Activated; Complete Time: 16:49 cp 05/04 16: Order name: IV Saline Lock; Complete Time: 16:28 cp 05/04 16: Order name: Labs collected and sent; Complete Time: 16:28 cp 05/04 16:33 Order name: CT Abd/Pelvis - IV Contrast Only; Complete Time: 19:07 cp 05/04 19:08 Interpretation: Report reviewed. cp Administered Medications: 16:28 Drug: NS 0.9% 1000 ml Route: IV; Rate: 1 bolus; Site: right antecubital; ph 19:30 Follow up: Response: No adverse reaction; IV Status: Completed infusion Disposition: 05/05 08:04 Co-signature as Attending Physician, Vincenzo Iyer MD. rn Disposition: 05/04/20 19:18 Discharged to Home. Impression: Other fecal abnormalities - blood in stool. - Condition is Stable. - Discharge Instructions: Gastrointestinal Bleeding. - Medication Reconciliation Form, Thank You Letter, Antibiotic Education, Prescription Opioid Use form. - Follow up: Beto Flores MD; When: 1 - 2 days; Reason: Recheck today's complaints. - Problem is new. - Symptoms have improved. Signatures: Dispatcher [employer] EDVincenzo Alexander MD MD rn Hall, Patricia, RN RN Jose Gimenez PA PA Juan Pablo Leggett Janell Estrada RN RN ll1 Corrections: (The following items were deleted from the chart) 05/04 19:31 19:18 05/04/2020 19:18 Discharged to Home. Impression: Other fecal abnormalities - wh blood in stool. Condition is Stable. Forms are Medication Reconciliation Form, Thank You Letter, Antibiotic Education, Prescription Opioid Use. Follow up: Beto Flores; When: 1 - 2 days; Reason: Recheck today's complaints. Problem is new. Symptoms have improved. cp
[2020-05-04 21:07] VITALS: TEMP 98.7
[2020-05-04 21:13] VITALS: BP 121/76; O2SAT 99
== END 2020-05-04 19:31 | disposition home or self-care (01) ==
LOC: ER 15:06
DX: K92.1 Melena (principal); F17.210 Nicotine dependence, cigarettes, uncomplicated
CPT/HCPCS: 36415; 74177; 80048; 80076; 83690; 85025; 85610; 85730; 96360; 96361; 99284; J7030; Q9967

== ENCOUNTER 2023-12-09 13:58 | Emergency (ER) | payer SELFPAY ==
--- NOTE | 2023-12-09 14:26 | EDPHYS ---
Physician Documentation [facility] Name: Butch Brown Age: 28 yrs Sex: Male : 1995 Arrival Date: 12/09/2023 Time: 13:58 Bed DX3 Private MD: ED Physician Basil Jordan HPI: 12/09 12:11 This 28 yrs old Male presents to ER via Ambulatory with complaints of ec2 Toothache. 12:11 Patient arrives today for evaluation of left upper dental pain. Patient reports no ec2 fevers or chills, denies trismus, no nausea or vomiting. Patient reports history of poor dentition, states he has not been able to follow-up with a dentist.. Historical: - Allergies: 12/08 14:17 No Known Allergies; ll1 - Home Meds: 14:17 None [Active]; ll1 - PMHx: 14:17 None; ll1 - PSHx: 14:17 Cholecystectomy; R arm SX; ll1 - Immunization history:: Adult Immunizations up to date. - Infectious Disease History:: Denies. - Social history:: Smoking status: Patient denies any tobacco usage or history of. ROS: 12/09 12:11 Constitutional: as per hpi ec2 Exam: 12:11 Constitutional: GEN: NAD Head: atraumatic Eyes: EOMI Ears: External ears are normal. ec2 Mouth: Left upper teeth with poor dentition, tooth #15 with injury CV: regular rate LUNGS: no respiratory distress ABD: non-distended SKIN: no evidence of rashes MSK: no evidence of trauma NEURO: moves all extremities equally Vital Signs: 12/08 14:17 BP 146 / 95; Pulse 77; Resp 16; Temp 97.2; Pulse Ox 100% ; Weight 104.33 kg; Height 6 ll1 ft. 2 in. ; Pain 6/10; 14:17 Body Mass Index 29.53 (104.33 kg, 187.96 cm) ll1 14:17 Pain Scale: Adult ll1 MDM: 14:25 Patient medically screened. ec2 12/09 12:11 Data reviewed: vital signs. ED course: Patient arrives today for left upper teeth pain. ec2 Examination remarkable for dental findings as above. Patient reports his broken tooth is chronic and not new for him. Will start the patient on Augmentin, discharged home on [id number] medications for pain as well. Started him he needs to follow up with his dentist.. Administered Medications: No medications were administered Disposition Summary: 12/09/23 14:25 Discharge Ordered Notes: Location: Home ec2 Condition: Stable ec2 Diagnosis - Dentalgia ec2 - Dental Infection ec2 Followup: ec2 - With: Private Physician - When: - Reason: Re-evaluation by your physician Discharge Instructions: - Discharge Summary Sheet ll1 - Dental Abscess, [id number] ec2 Forms: - Work release form ll1 - Medication Reconciliation Form ec2 - Antibiotic Education ec2 - Prescription Opioid Use ec2 - Patient Portal Instructions ec2 - Leadership Thank You Letter ec2 Prescriptions: - acetaminophen-codeine 300-15 mg Oral tablet - take 2 tablet ORAL route every 4 hours; 15 tablet; Refills: 0, Product ec2 Selection Permitted - Augmentin 875-125 mg Oral Tablet - take 1 tablet ORAL route every 12 hours for 10 days; 20 tablet; Refills: 0, ec2 Product Selection Permitted Signatures: Janell Estrada RN RN ll1 Basil Jordan MD MD ec2
--- NOTE | 2023-12-09 14:26 | ER ---
Nurse's Notes [facility] Name: Butch Brown Age: 28 yrs Sex: Male : 1995 Arrival Date: 12/09/2023 Time: 13:58 Bed DX3 Private MD: Diagnosis: Dentalgia;Dental Infection Presentation: 12/08 14:17 Chief complaint: Patient states: L upper jaw tooth pain for 1 month. Started to have ll1 nausea at work today, so he thought he should get checked. No fever. Coronavirus screen: Client denies travel out of the [place] in the last 14 days. At this time, the client does not indicate any symptoms associated with coronavirus-19. Ebola Screen: Patient denies travel to an Ebola-affected area in the 21 days before illness onset. Initial Sepsis Screen: Does the patient meet any 2 criteria? No. Patient's initial sepsis screen is negative. Does the patient have a suspected source of infection? No. Patient's initial sepsis screen is negative. Risk Assessment: Do you want to hurt yourself or someone else? Patient reports no desire to harm self or others. Onset of symptoms was November 09, 2023. 14:17 Method Of Arrival: Ambulatory ll1 14:17 Acuity: NIGHAT 4 ll1 Triage Assessment: 14:20 General: Appears uncomfortable, Behavior is calm, cooperative, appropriate for age. ll1 Pain: Complains of pain in L lower jaw. EENT: Reports pain in left zygomatic area. Historical: - Allergies: 14:17 No Known Allergies; ll1 - Home Meds: 14:17 None [Active]; ll1 - PMHx: 14:17 None; ll1 - PSHx: 14:17 Cholecystectomy; R arm SX; ll1 - Immunization history:: Adult Immunizations up to date. - Infectious Disease History:: Denies. - Social history:: Smoking status: Patient denies any tobacco usage or history of. Screenin:32 [facility] ED Fall Risk Assessment (Adult) History of falling in the last 3 months, hb including since admission No falls in past 3 months (0 pts) Confusion or Disorientation No (0 pts) Intoxicated or Sedated No (0 pts) Impaired Gait No (0 pts) Mobility Assist Device Used No (0 pt) Altered Elimination No (0 pt) Score/Fall Risk Level 0 - 2 = Low Risk Oriented to surroundings, Maintained a safe environment, Educated pt \T\ family on fall prevention, incl call for assistance when getting out of bed. Abuse screen: Denies threats or abuse. Nutritional screening: No deficits noted. Tuberculosis screening: No symptoms or risk factors identified. Assessment: 14:32 General: Appears in no apparent distress. Behavior is calm, cooperative. Pain: Pain hb currently is 6 out of 10 on a pain scale. Neuro: Level of Consciousness is awake, alert, obeys commands, Oriented to person, place, time, situation. Cardiovascular: Patient's skin is warm and dry. Respiratory: Respiratory effort is even, unlabored, Respiratory pattern is regular, symmetrical. EENT: Reports left upper tooth and jaw pain. Vital Signs: 14:17 BP 146 / 95; Pulse 77; Resp 16; Temp 97.2; Pulse Ox 100% ; Weight 104.33 kg; Height 6 ll1 ft. 2 in. ; Pain 6/10; 14:17 Body Mass Index 29.53 (104.33 kg, 187.96 cm) 1 14:17 Pain Scale: Adult ll1 ED Course: 14:00 Patient arrived in ED. mg5 14:02 Basil Jordan MD is Attending Physician. ec2 14:19 Triage completed. ll1 14:19 Arm band placed on. ll1 14:23 Janell Estrada RN is Primary Nurse. 1 14:32 Patient has correct armband on for positive identification. Provided Education on: hb medication, follow up. 14:32 No provider procedures requiring assistance completed. Patient did not have IV access hb during this emergency room visit. Administered Medications: No medications were administered Medication: 14:32 VIS not applicable for this client. hb Outcome: 14:25 Discharge ordered by . ec2 14:32 Discharged to home ambulatory, with significant other, hb 14:32 Condition: stable 14:32 Discharge instructions given to patient, Instructed on discharge instructions, follow up and referral plans. medication usage, Demonstrated understanding of instructions, follow-up care, medications, Prescriptions given X 2, 14:33 Patient left the ED. hb Signatures: Kym Flores RN RN Janell Estrada RN RN 1 Allison Ta mg5 Basil Jordan MD MD ec2 Corrections: (The following items were deleted from the chart) 14:21 14:17 Chief complaint: Patient states: L lower jaw tooth pain for 1 month. Started to ll1 have nausea at work today so he thought he should get checked. ll1
[2023-12-09 14:45] VITALS: BP 146/95; TEMP 97.2; O2SAT 100
== END 2023-12-09 14:33 | disposition home or self-care (01) ==
LOC: ER 13:58
DX: K04.7 Periapical abscess without sinus (principal)
CPT/HCPCS: 99283

== ENCOUNTER 2024-08-01 01:31 | Emergency (ER) | payer SELFPAY ==
[2024-08-01] MEDS ORDERED: ACETAMINOPHEN 500 MG TAB ONE (01:50)
[2024-08-01] MEDS ORDERED: KETOROLAC 30 MG/ML INJ ONE (01:50)
[2024-08-01] MEDS ORDERED: CEPHALEXIN 250 MG CAP ONE (01:50)
--- NOTE | 2024-08-01 02:01 | ER ---
Nurse's Notes [facility] Name: Butch Brown Age: 29 yrs Sex: Male : 1995 Arrival Date: 08/01/2024 Time: 01:31 Bed 5 Private MD: Diagnosis: Dental caries, unspecified;Tooth #1 dental pain, Acute pulpitis tooth #1, Tooth # 1 Dental Cavity Presentation: 08/01 01:45 Chief complaint: Patient states: Broke tooth a few months ago became painful a couple vc1 of days ago, now I can't sleep. Coronavirus screen: Client denies travel out of the [place] in the last 14 days. At this time, the client does not indicate any symptoms associated with coronavirus-19. Ebola Screen: Patient negative for fever greater than or equal to 101.5 degrees Fahrenheit, and additional compatible Ebola Virus Disease symptoms Patient denies exposure to infectious person. Patient denies travel to an Ebola-affected area in the 21 days before illness onset. No symptoms or risks identified at this time. Initial Sepsis Screen: Does the patient meet any 2 criteria? No. Patient's initial sepsis screen is negative. Does the patient have a suspected source of infection? No. Patient's initial sepsis screen is negative. Risk Assessment: Do you want to hurt yourself or someone else? Patient reports no desire to harm self or others. Onset of symptoms is unknown. Care prior to arrival: Medication(s) given: Tylenol, 1000 mg. 01:45 Method Of Arrival: Ambulatory vc1 01:45 Acuity: NIGHAT 4 vc1 Triage Assessment: 01:52 General: Appears in no apparent distress. uncomfortable, Behavior is calm, cooperative, vc1 appropriate for age. Pain: Complains of pain in upper right third molar Pain does not radiate. Pain currently is 6 out of 10 on a pain scale. Quality of pain is described as aching, throbbing. EENT: Reports pain in upper right third molar Pain is 6 out of 10 on a pain scale. Neuro: Level of Consciousness is awake, alert, obeys commands, Oriented to person, place, time, situation, Appropriate for age. Cardiovascular: Capillary refill < 3 seconds. Respiratory: Airway is patent Respiratory effort is even, unlabored, Respiratory pattern is regular, symmetrical. GI: No deficits noted. No signs and/or symptoms were reported involving the gastrointestinal system. : No deficits noted. No signs and/or symptoms were reported regarding the genitourinary system. Derm: Skin is intact, is healthy with good turgor, Skin is dry, Skin is normal, Skin temperature is warm. Musculoskeletal: Circulation, motion, and sensation intact. Range of motion: intact in all extremities. Historical: - Allergies: :49 No Known Allergies; vc1 - Home Meds: :49 None [Active]; vc1 - PMHx: :49 None; vc1 - PSHx: :49 Cholecystectomy; R arm SX; vc1 - Immunization history:: Client reports receiving the 1st dose of the Covid vaccine, Flu vaccine is not up to date. - Infectious Disease History:: Denies. - Social history:: Smoking status: Patient denies any tobacco usage or history of. - Family history:: not pertinent. Screenin:50 [facility] ED Fall Risk Assessment (Adult) History of falling in the last 3 months, vc1 including since admission No falls in past 3 months (0 pts) Confusion or Disorientation No (0 pts) Intoxicated or Sedated No (0 pts) Impaired Gait No (0 pts) Mobility Assist Device Used No (0 pt) Altered Elimination No (0 pt) Score/Fall Risk Level 0 - 2 = Low Risk Oriented to surroundings, Maintained a safe environment, Educated pt \T\ family on fall prevention, incl call for assistance when getting out of bed. Abuse screen: Denies threats or abuse. Nutritional screening: No deficits noted. Tuberculosis screening: No symptoms or risk factors identified. Assessment: 01:59 Reassessment: Patient and/or family updated on plan of care and expected duration. Pain br2 level reassessed. Patient is alert, oriented x 3, equal unlabored respirations, skin warm/dry/pink. General: Appears uncomfortable, Behavior is calm, cooperative. Pain: Complains of pain in right buccal mucosa Pain does not radiate. Pain currently is 4 out of 10 on a pain scale. Neuro: [place] Agitation-Sedation Scale (RASS): 0 - Alert and Calm Level of Consciousness is awake, alert, obeys commands, Oriented to person, place, time, situation. Cardiovascular: Denies chest pain. Respiratory: Airway is patent Respiratory effort is even, unlabored, Respiratory pattern is regular, symmetrical. GI: No signs and/or symptoms were reported involving the gastrointestinal system. : No signs and/or symptoms were reported regarding the genitourinary system. EENT: No signs and/or symptoms were reported regarding the EENT system. Derm: No signs and/or symptoms reported regarding the dermatologic system. Vital Signs: 01:45 BP 145 / 85; Pulse 72; Resp 15; Temp 98.6; Pulse Ox 98% ; Weight 104.33 kg; Height 6 vc1 ft. 2 in. ; Pain 6/10; 02:01 BP 126 / 93; Pulse 65; Resp 18 S; Pulse Ox 98% on R/A; Pain 4/10; br2 01:45 Body Mass Index 29.53 (104.33 kg, 187.96 cm) vc1 01:45 Pain Scale: Adult vc1 02:01 Pain Scale: Adult br2 [place] Coma Score: 07:10 Eye Response: spontaneous(4). Motor Response: obeys commands(6). Verbal Response: sp4 oriented(5). Total: 15. ED Course: 01:33 Patient arrived in ED. jj6 01:42 Tom Fraser MD is Attending Physician. sp4 01:47 Latanya Seth RN is Primary Nurse. br2 01:48 Triage completed. vc1 01:49 Arm band placed on right wrist. vc1 01:50 Patient has correct armband on for positive identification. Bed in low position. Call vc1 light in reach. Provided Education on: call light. Pulse ox on. NIBP on. 02:00 Eleno Russ DDS is Referral Physician. sp4 02:11 No provider procedures requiring assistance completed. Patient did not have IV access br2 during this emergency room visit. Administered Medications: 02:00 Drug: Acetaminophen PO 1000 mg PO once Route: PO; br2 02:10 Follow up: Response: Medication administered at discharge. br2 02:01 Drug: Ketorolac IM 60 mg IM once Route: IM; Site: right gluteus; br2 02:10 Follow up: Response: Medication administered at discharge. br2 02:01 Drug: Cephalexin PO 500 mg PO once Route: PO; br2 02:10 Follow up: Response: Medication administered at discharge. br2 02:11 Drug: traMADol PO 100 mg PO once Route: PO; br2 02:11 Follow up: Response: Medication administered at discharge. br2 02:11 Follow up: Response: Medication administered at discharge. br2 Medication: 01:52 VIS not applicable for this client. vc1 Outcome: 02:01 Discharge ordered by . sp4 02:11 Discharged to home ambulatory, br2 02:11 Condition: good 02:11 Discharge instructions given to patient, Instructed on discharge instructions, follow up and referral plans. Demonstrated understanding of instructions, follow-up care, medications, Prescriptions given X 3, 02:11 Patient left the ED. br2 Signatures: Concetta Patiño jj6 Maile Wade RN RN vc1 Tom Fraser MD MD sp4 Latanya Seth RN RN br2 Corrections: (The following items were deleted from the chart) 02:41 02:41 Patient left the ED. br2 br2
--- NOTE | 2024-08-01 02:01 | EDPHYS ---
Physician Documentation [facility] Name: Butch Brown Age: 29 yrs Sex: Male : 1995 Arrival Date: 08/01/2024 Time: 01:31 Bed 5 Private MD: ED Physician Tom Fraser HPI: 08/01 01:42 This 29 yrs old Male presents to ER via Unassigned with complaints of sp4 Toothache. 07:10 29-year-old male presents with complaint of toothache. Patient complains of right upper sp4 posterior dental pain starting 3 days ago worsening this morning. . Historical: - Allergies: 01:49 No Known Allergies; vc1 - Home Meds: 01:49 None [Active]; vc1 - PMHx: 01:49 None; vc1 - PSHx: 01:49 Cholecystectomy; R arm SX; vc1 - Immunization history:: Client reports receiving the 1st dose of the Covid vaccine, Flu vaccine is not up to date. - Infectious Disease History:: Denies. - Social history:: Smoking status: Patient denies any tobacco usage or history of. - Family history:: not pertinent. ROS: 07:10 Constitutional: Negative for fever, chills, and weight loss, positive for right upper sp4 dental pain 07:10 All other systems are negative, Exam: 07:10 Constitutional: This is a well developed, well nourished patient who is awake, alert, sp4 and in no acute distress. Head/Face: Normocephalic, atraumatic. Eyes: Pupils equal round and reactive to light, extra-ocular motions intact. Lids and lashes normal. Conjunctiva and sclera are not injected. Cornea within normal limits. Periorbital areas with no swelling, redness, or edema. ENT: Nares patent. No nasal discharge, no septal abnormalities noted. Tympanic membranes are normal and external auditory canals are clear. Oropharynx with no redness, swelling, or masses, exudates, or evidence of obstruction, uvula midline. Mucous membranes moist. Right upper gingival tenderness, right posterior tooth #1 dental tenderness. There is also tooth #1 cavity with sensitivity and tenderness to compression. Neck: Trachea midline, no thyromegaly or masses palpated, and no cervical lymphadenopathy. Supple, full range of motion without nuchal rigidity, or vertebral point tenderness. Chest/axilla: Normal chest wall appearance and motion. Nontender with no deformity. No lesions are appreciated. Cardiovascular: Regular rate and rhythm with a normal S1 and S2. No gallops, murmurs, or rubs. Normal PMI, no JVD. No pulse deficits. Respiratory: Lungs have equal breath sounds bilaterally, clear to auscultation and percussion. No rales, rhonchi or wheezes noted. No increased work of breathing, no retractions or nasal flaring. Abdomen/GI: Soft, with normal bowel sounds. No distension or tympany. No guarding or rebound. No evidence of tenderness throughout. Back: No spinal tenderness. No costovertebral tenderness. Skin: Warm, dry with normal turgor. Normal color with no rashes, no lesions, and no evidence of cellulitis. MS/ Extremity: Pulses equal, no cyanosis. Neurovascular intact. Full, normal range of motion. Neuro: Awake and alert, GCS 15, oriented to person, place, time, and situation. Cranial nerves II-XII grossly intact. Motor strength 5/5 in all extremities. Sensory grossly intact. Psych: Awake, alert, with orientation to person, place and time. Behavior, mood, and affect are within normal limits Vital Signs: 01:45 BP 145 / 85; Pulse 72; Resp 15; Temp 98.6; Pulse Ox 98% ; Weight 104.33 kg; Height 6 vc1 ft. 2 in. ; Pain 6/10; 02:01 BP 126 / 93; Pulse 65; Resp 18 S; Pulse Ox 98% on R/A; Pain 4/10; br2 01:45 Body Mass Index 29.53 (104.33 kg, 187.96 cm) vc1 01:45 Pain Scale: Adult vc1 02:01 Pain Scale: Adult br2 [place] Coma Score: 07:10 Eye Response: spontaneous(4). Motor Response: obeys commands(6). Verbal Response: sp4 oriented(5). Total: 15. MDM: 01:46 Medical Screening Exam initiated sp4 01:59 Differential diagnosis: dental caries, gingivitis, pericoronitis, aphthous ulcers, sp4 gingivostomatitis. Data reviewed: vital signs, nurses notes, old medical records. ED course: Stable for discharge home . Administered Medications: 02:00 Drug: Acetaminophen PO 1000 mg PO once Route: PO; br2 02:10 Follow up: Response: Medication administered at discharge. br2 02:01 Drug: Ketorolac IM 60 mg IM once Route: IM; Site: right gluteus; br2 02:10 Follow up: Response: Medication administered at discharge. br2 02:01 Drug: Cephalexin PO 500 mg PO once Route: PO; br2 02:10 Follow up: Response: Medication administered at discharge. br2 02:11 Drug: traMADol PO 100 mg PO once Route: PO; br2 02:11 Follow up: Response: Medication administered at discharge. br2 02:11 Follow up: Response: Medication administered at discharge. br2 Disposition Summary: 08/01/24 02:01 Discharge Ordered Notes: Location: Home sp4 Problem: new sp4 Symptoms: have improved sp4 Condition: Stable sp4 Diagnosis - Dental caries, unspecified sp4 - Tooth #1 dental pain, Acute pulpitis tooth #1, Tooth # 1 Dental Cavity sp4 Followup: sp4 - With: Eleno Russ DDS - When: 7 - 10 days - Reason: Recheck today's complaints Discharge Instructions: - Discharge Summary Sheet sp4 - Dental Caries, Adult sp4 Forms: - Patient Portal Instructions sp4 Prescriptions: - Cephalexin 500 mg Oral Capsule - take 1 capsule ORAL route every 6 hours for 10 days; 40 capsule; Refills: 0, sp4 Product Selection Permitted - Ibuprofen 800 mg Oral Tablet - take 1 tablet ORAL route every 8 hours As needed take with food; 30 tablet; sp4 Refills: 0, Product Selection Permitted - Tramadol 50 mg Oral tablet - take 1 tablet ORAL route every 8 hours as needed; 20 tablet; Refills: 0, sp4 Product Selection Permitted Signatures: Maile Wade RN RN vc1 Tom Fraser MD MD sp4 Latanya Seth RN RN br2
[2024-08-01] MEDS ORDERED: TRAMADOL HCL 50 MG TAB ONE (02:08)
[2024-08-01 03:53] VITALS: TEMP 98.6; O2SAT 98
[2024-08-01 03:55] VITALS: BP 126/93
== END 2024-08-01 02:41 | disposition home or self-care (01) ==
LOC: ER 01:31
DX: K04.01 Reversible pulpitis (principal); K02.9 Dental caries, unspecified; K08.89 Other specified disorders of teeth and supporting structures
CPT/HCPCS: 96372; 99284

== ENCOUNTER 2024-11-08 15:29 | Emergency (ER) | payer SELFPAY ==
--- NOTE | 2024-11-08 16:13 | RAD REPORT ---
EXAMINATION: TWO VIEW CHEST XR CLINICAL INDICATION: Congestion;Cough TECHNIQUE: 2 views of the chest was performed. COMPARISON: No prior exam. FINDINGS: The lungs are well inflated and clear. The heart is normal in size. No displaced fractures evident. IMPRESSION: No acute or significant abnormalities.
[2024-11-08] MEDS ORDERED: dexAMETHasone 10 MG/ML VIAL ONE (16:55)
[2024-11-08] MEDS ORDERED: IPRATROPIUM BROM 0.5MG/2.5ML ONE (16:55)
[2024-11-08] MEDS ORDERED: ALBUTEROL 2.5 MG/3 ML NEB SOL ONE (16:55)
[2024-11-08] MEDS ORDERED: AZITHROMYCIN 250 MG TAB ONE (16:55)
[2024-11-08] MEDS ORDERED: BENZONATATE 100 MG CAP PO ONE (16:56)
--- NOTE | 2024-11-08 17:36 | ER ---
Nurse's Notes [facility] Name: Butch Brown Age: 29 yrs Sex: Male : 1995 Arrival Date: 11/08/2024 Time: 15:29 Bed Treatment Private MD: Diagnosis: Acute bronchitis, unspecified Presentation: 11/08 15:42 Chief complaint: Cough and congestion x 4 days. Coronavirus screen: Client presents with at least one sign or symptom that may indicate coronavirus-19. Provider contacted for isolation considerations. Ebola Screen: No symptoms or risks identified at this time. Initial Sepsis Screen: Does the patient meet any 2 criteria? No. Patient's initial sepsis screen is negative. Does the patient have a suspected source of infection? No. Patient's initial sepsis screen is negative. Risk Assessment: Do you want to hurt yourself or someone else? Patient reports no desire to harm self or others. Onset of symptoms was November 04, 2024. 15:42 Method Of Arrival: Ambulatory hb 15:42 Acuity: NIGHAT 4 hb Historical: - Allergies: 15:43 No Known Allergies; hb - Home Meds: 15:43 None [Active]; hb - PMHx: 15:43 None; hb - PSHx: 15:43 Cholecystectomy; R arm SX; hb - Immunization history:: Adult Immunizations up to date. - Infectious Disease History:: Denies. - Social history:: Smoking status: Patient denies any tobacco usage or history of. Assessment: 17:03 Reassessment: Patient is alert, oriented x 3, equal unlabored respirations, skin aa5 warm/dry/pink. Vital Signs: 15:44 BP 153 / 86; Pulse 86; Resp 18; Temp 98.7(O); Pulse Ox 99% ; Weight 104.33 kg; Height 6 hb ft. 2 in. ; Pain 6/10; 15:44 Body Mass Index 29.53 (104.33 kg, 187.96 cm) hb 15:44 Pain Scale: Adult hb ED Course: 15:31 Patient arrived in ED. im 15:34 Jose Stevens MD is Attending Physician. gregory 15:41 Bobo Odell FNP-C [facility]. hb 15:43 Triage completed. hb 15:45 Arm band placed on. hb 16:07 Chest Pa And Lat (2 Views) XRAY In Process Unspecified. EDMS 17:11 Stefanie Pro, RN is Primary Nurse. kj2 Administered Medications: 17:03 Drug: Tessalon Perle PO 200 mg PO once Route: PO; aa5 17:03 Drug: AZITHromycin PO 500 mg PO once Route: PO; aa5 17:03 Drug: DuoNeb Nebulize (3:1) (2.5 mg - 0.5 mg) 6 ml Nebulizer once Route: Nebulizer; aa5 17:03 Drug: Dexamethasone IM 10 mg IM once Route: IM; Site: left deltoid; aa5 Outcome: 17:35 Discharge ordered by . dr5 17:41 Patient left the ED. hb Signatures: Dispatcher [employer] EDMS Jose Stevens MD MD cha Calderon, Audri, RN RN aa5 Kym Flores RN RN Bettie Cisse Krystal, JULIAN RN kj2 Bobo Odell, UNIT CLERK-C UNIT CLERK-[facility] [place]5
[2024-11-08 17:54] VITALS: BP 153/86; TEMP 98.7; O2SAT 99
--- NOTE | 2024-11-09 17:41 | EDPHYS ---
Physician Documentation [facility] Name: Butch Brown Age: 29 yrs Sex: Male : 1995 Arrival Date: 11/08/2024 Time: 15:29 Bed Treatment Private MD: ED Physician Jose Stevens HPI: 11/08 18:37 This 29 yrs old Male presents to ER via Ambulatory with complaints of dr5 Congestion, Sore Throat, Cough. 18:37 Onset: The symptoms/episode began/occurred 2 day(s) ago. Patient is a 29-year-old male dr5 with no past with history coming in with cough, shortness of breath that's been going on for the past two days. Patient reports that he felt better yesterday but the cough is continuous. Pt denies history of asthma, emphysema, or COPD.. Historical: - Allergies: 15:43 No Known Allergies; hb - Home Meds: 15:43 None [Active]; hb - PMHx: 15:43 None; hb - PSHx: 15:43 Cholecystectomy; R arm SX; hb - Immunization history:: Adult Immunizations up to date. - Infectious Disease History:: Denies. - Social history:: Smoking status: Patient denies any tobacco usage or history of. ROS: 18:37 Constitutional: as per hpi dr5 Exam: 18:37 Constitutional: This is a well developed, well nourished patient who is awake, alert, dr5 and in no acute distress. Head/Face: Normocephalic, atraumatic. ENT: Nares patent. No nasal discharge, no septal abnormalities noted. Tympanic membranes are normal and external auditory canals are clear. Oropharynx with no redness, swelling, or masses, exudates, or evidence of obstruction, uvula midline. Mucous membranes moist. Neck: Trachea midline, no thyromegaly or masses palpated, and no cervical lymphadenopathy. Supple, full range of motion without nuchal rigidity, or vertebral point tenderness. No Meningismus. Chest/axilla: Normal chest wall appearance and motion. Nontender with no deformity. No lesions are appreciated. Cardiovascular: Regular rate and rhythm with a normal S1 and S2. Normal PMI, no JVD. No pulse deficits. 18:37 Back: No spinal tenderness. No costovertebral tenderness. Full range of motion. Skin: Warm, dry with normal turgor. Normal color with no rashes, no lesions, and no evidence of cellulitis. Neuro: Awake and alert, GCS 15, oriented to person, place, time, and situation. Cranial nerves II-XII grossly intact. Motor strength 5/5 in all extremities. Sensory grossly intact. Cerebellar exam normal. Normal gait. 18:37 Respiratory: mild respiratory distress is noted, Respirations: no acute changes, Breath sounds: wheezing: that is moderate, is heard diffusely, Vital Signs: 15:44 BP 153 / 86; Pulse 86; Resp 18; Temp 98.7(O); Pulse Ox 99% ; Weight 104.33 kg; Height 6 hb ft. 2 in. ; Pain 6/10; 15:44 Body Mass Index 29.53 (104.33 kg, 187.96 cm) hb 15:44 Pain Scale: Adult hb MDM: 15:34 Medical Screening Exam initiated gregory 18:37 Differential diagnosis: viral Infection, bacterial infection, URI, bronchitis, dr5 pneumonia. Data reviewed: vital signs, nurses notes. I considered the following discharge prescriptions or medication management in the emergency department Medications were administered in the Emergency Department. See MAR. Care significantly affected by the following Social Determinants of Health: Poor access to healthcare and/or lack of insurance, Poor access to transportation, Problems related to employment. Counseling: I had a detailed discussion with the patient and/or guardian regarding the historical points, exam findings, and any diagnostic results supporting the discharge/admit diagnosis, the presence of at least one elevated blood pressure reading (>120/80) during this emergency department visit, lab results, radiology results, the need for outpatient follow up, for definitive care, a family practitioner, to return to the emergency department if symptoms worsen or persist or if there are any questions or concerns that arise at home. Medication response: albuterol nebulizer treatment(s) markedly relieved the patient's wheezing. Response to treatment: the patient's symptoms have markedly improved after treatment, the patient is now symptom free. ED course: Patient reports he feels much better after breathing treatments and dexamethasone IM. Will cover for potential developing pneumonia with azithromycin and Augmentin. Will give steroid Dosepak as well as albuterol to take as needed. Recommend increase hydration, alternate Tylenol and Motrin as needed for pain and fever. All questions answered.. 11/08 15:45 Order name: Chest Pa And Lat (2 Views) XRAY; Complete Time: 16:14 hb Administered Medications: 17:03 Drug: Tessalon Perle PO 200 mg PO once Route: PO; aa5 17:03 Drug: AZITHromycin PO 500 mg PO once Route: PO; aa5 17:03 Drug: DuoNeb Nebulize (3:1) (2.5 mg - 0.5 mg) 6 ml Nebulizer once Route: Nebulizer; aa5 17:03 Drug: Dexamethasone IM 10 mg IM once Route: IM; Site: left deltoid; aa5 Disposition Summary: 11/08/24 17:35 Discharge Ordered Notes: Location: Home dr5 Condition: Stable dr5 Diagnosis - Acute bronchitis, unspecified dr5 Followup: dr5 - With: Emergency Department - When: 1 - 2 days - Reason: Recheck today's complaints, Continuance of care, Re-evaluation by your physician Followup: dr5 - With: Private Physician - When: 1 - 2 days - Reason: Recheck today's complaints, Continuance of care, Re-evaluation by your physician Discharge Instructions: - Discharge Summary Sheet dr5 - Acute Bronchitis, Adult dr5 Forms: - Medication Reconciliation Form dr5 - Antibiotic Education dr5 - Patient Portal Instructions dr5 - Leadership Thank You Letter dr5 Prescriptions: - albuterol sulfate 90 mcg/actuation Inhalation HFA Aerosol Inhaler - inhale 1 puff INHALATION route every 4 hours as needed for bronchospasm; dr5 administer via ventilator; 1 application; Refills: 0, Product Selection Permitted - Augmentin 875-125 mg Oral Tablet - take 1 tablet ORAL route every 12 hours for 10 days; 20 tablet; Refills: 0, dr5 Product Selection Permitted - Zithromax Z-Romulo 250 mg Oral tablet - take 1 tablet ORAL route as directed for 4 days Take 1 tablet once daily for dr5 the next four days.; 4 tablet; Refills: 0, Product Selection Permitted - Medrol (Romulo) 4 mg Oral Tablets, Dose Pack - take 1 tablet ORAL route as directed - follow package instructions; 1 packet; dr5 Refills: 0, Product Selection Permitted Signatures: Dispatcher [employer] Jose Beckham MD MD cha Calderon, Audri, RN RN aa5 Kym Flores RN RN Bobo Dowling, SENIOR CORE JAVA DEVELOPER-C SENIOR CORE JAVA DEVELOPER-Cdr5
== END 2024-11-08 17:41 | disposition home or self-care (01) ==
LOC: ER 15:29
DX: J20.9 Acute bronchitis, unspecified (principal)
CPT/HCPCS: 71046; 96372; 99284; J1100; J7613; J7644